=== PATIENT | female | born 1970 | race Two or more races ===

== ENCOUNTER 2020-12-22 09:28 | Outpatient (CLI) | payer OTHER | END 2020-12-22 09:37 | disposition home or self-care (01) | LOC: RX STUDY 09:28 | DX: R13.19 Other dysphagia (principal) ==

== ENCOUNTER 2022-04-12 07:17 | Outpatient (CLI) | payer OTHER | END 2022-04-12 07:30 | disposition home or self-care (01) | LOC: RAD 07:17 | DX: M54.14 Radiculopathy, thoracic region (principal); M54.6 Pain in thoracic spine; R10.13 Epigastric pain | CPT/HCPCS: 72146 ==

== ENCOUNTER 2024-09-26 07:25 | Outpatient (CLI) | payer OTHER | END 2024-09-26 07:26 | disposition home or self-care (01) | LOC: NUCLEAR 07:25 | DX: R10.13 Epigastric pain (principal) ==